=== PATIENT | male | born 1975 | race Caucasian/White ===

== ENCOUNTER 2021-08-17 09:08 | Emergency (ER) | payer BC, SELFPAY ==
[2021-08-17 09:11] VITALS: BP 152/105; PULSE 89; RESP 16; TEMP 36.5; O2SAT 100
[2021-08-17] MEDS: MELOXICAM 7.5 MG TABLET PO (10:31)
[2021-08-17] MEDS: LIDOCAINE 5% PATCH 1 PATCH TRANSDERM (10:32)
--- NOTE | 2021-08-20 17:32 | ED.BACK ---
HPI - Back Pain/Injury General Chief Complaint: Back Pain/Injury Stated Complaint: Backs all screwed up Time Seen by Provider: 08/17/21 09:56 History of Present Illness HPI Narrative: Patient is a healthy 45-year-old male here for evaluation of atraumatic right-sided low back pain for the past 2 weeks. Patient states that the pain is worse at night, and also worse with rotation of his torso. He describes the pain as a muscle spasm. He has not tried any medication for this pain. He is not currently having pain today. Patient reports a similar pain in the past that he attributed to muscle spasms, these were relieved after muscle relaxers. He denies incontinence or retention of his bowel or bladder, fevers, urinary symptoms. Related Data Home Medications Medication Instructions Recorded Confirmed No Home Medications 08/17/21 08/17/21 Allergies Allergy/AdvReac Type Severity Reaction Status Date / Time No Known Allergies Allergy Verified 08/17/21 09:59 Review of Systems Review of Systems: Gen.: Denies fevers or chills Eyes: Denies eye pain or visual change ENT: Denies congestion Respiratory: Denies shortness of breath or cough CV: Denies chest pain or palpitations GI: Denies abdominal pain nausea, emesis or diarrhea denies burning, urgency, frequency or hematuria Musculoskeletal: Reports right-sided low back pain. Neuro: Denies numbness, tingling, weakness or focal weakness Skin: Denies rash Except as documented, all other systems reviewed and negative Exam Narrative: APPEARANCE: Well appearing, no pain in distress, well-nourished. Head normocephalic and atraumatic. EYES: PERRLA/EOMI, conjunctivae clear NOSE: No nasal drainage EARS: External ear normal in appearance THROAT: Oropharynx is clear. Mucous membranes are moist. NECK: Supple. No adenopathy, no masses. RESPIRATORY: Airway patent, respirations nonlabored. Clear to auscultation bilaterally, no rales, rhonchi, wheezing. CARDIOVASCULAR: Regular rate and rhythm without murmurs, rubs, or gallops. ABDOMINAL: Normoactive bowel sounds. Soft, nontender, nondistended. No rebound tenderness or guarding. MUSCULOSKELETAL: Pain is elicited with rotation of the torso in the right Lumbar paraspinal region. Extremities are warm and well-perfused. Moves all extremities well. No edema. NEURO: Normal speech. No focal neurologic deficits. SKIN: Skin is warm and dry. No rashes. PSYCHIATRIC: Normal affect/mood. Course Vital Signs Vital signs: Vital Signs Temperature 97.7 F 08/17/21 09:11 Pulse Rate 89 08/17/21 09:11 Respiratory Rate 16 08/17/21 09:11 Blood Pressure 152/105 H 08/17/21 09:11 Pulse Oximetry 100 08/17/21 09:11 Temperature 97.7 F 08/17/21 09:11 Pulse Rate 89 08/17/21 09:11 Respiratory Rate 16 08/17/21 09:11 Blood Pressure 152/105 H 08/17/21 09:11 Pulse Oximetry 100 08/17/21 09:11 MDM - Back Pain/Injury MDM Narrative Medical decision making narrative: 45-year-old male here for right-sided paraspinal lumbar back pain x 2 weeks, pain is not currently present. Patient does not have any red flag symptoms to suggest spinal cord compression, such as incontinence or retention of bowel or bladder, fevers, history of IV drug use. Vital signs are stable, he has no midline tenderness on exam or history of trauma to suggest need for imaging. Will trial lidocaine patches and muscle relaxants for patient's pain. Discussed return precautions with patient. Discharge Plan Discharge Clinical Impression: Strain of lumbar region Patient Disposition: Home, Self-Care Condition: Stable Instructions: Antibiotic Form, Low Back Strain (ED) Additional Instructions: Please use lidocaine patches over the area of pain. Take 1 pill of the meloxicam daily if you have pain, but do not take this with other anti-inflammatories such as ibuprofen or Aleve. Take the cyclobenzaprine at nighttime as needed for your muscle spasms, but do not
== END 2021-08-17 10:38 | disposition home or self-care (01) ==
PROVIDERS: Emergency Provider Emergency Medicine
DX: S39.012A Strain of muscle, fascia and tendon of lower back, initial encounter (principal); X58.XXXA Exposure to other specified factors, initial encounter
CPT/HCPCS: 99283; A9270